=== PATIENT | male | born 1995 | race Caucasian/White ===

== ENCOUNTER 2024-04-16 19:36 | Emergency (ER) | payer SELFPAY ==
[~2024-04-16] VITALS: Ht 162.6 cm; Wt 73.0 kg
[2024-04-16 19:54] VITALS: BP 118/69; PULSE 90; RESP 18; TEMP 97.9; O2SAT 95
== END 2024-04-16 20:04 | disposition left against medical advice (07) ==
LOC: ER 19:53
DX: S01.91XA Laceration without foreign body of unspecified part of head, initial encounter (principal); Z53.21 Procedure and treatment not carried out due to patient leaving prior to being seen by health care provider; X58.XXXA Exposure to other specified factors, initial encounter; Y93.89 Activity, other specified; Y92.89 Other specified places as the place of occurrence of the external cause; Y99.8 Other external cause status